=== PATIENT | male | born 1970 | race Caucasian/White ===

== ENCOUNTER 2016-08-31 19:33 | Emergency (ER) | payer OTHER ==
[2016-08-31] MEDS ORDERED: KETOROLAC 60 MG/2 ML VIAL IM STA (20:57)
[2016-08-31] MEDS ORDERED: KETOROLAC 60 MG/2 ML VIAL ONE (21:03)
[2016-08-31 21:57] LABS: BILIRUBIN,URINE NEGATIVE (NEGATIVE)
[2016-08-31 21:58] LABS: UA w/ MICROSCOPIC CHARGE YES
[2016-08-31 22:03] LABS: UR CULTURE IF IND NOT INDICATED; WBC,URINE 0-3 /HPF (0-3)
[2016-08-31] MEDS ORDERED: TAMSULOSIN 0.4 MG CAPSULE PO STA (22:45)
[2016-08-31] MEDS ORDERED: oxyCOD/ACETAMIN 5 MG/325 MG TABLET PO STA (22:45)
[2016-08-31] MEDS ORDERED: oxyCODONE/ACET 5/325 Prepack 4 PO STA (22:45)
[2016-08-31] MEDS ORDERED: TAMSULOSIN 0.4 MG CAPSULE ONE (22:47)
[2016-08-31] MEDS ORDERED: oxyCODONE/ACET 5/325 Prepack 4 PO ONE (22:47)
[2016-08-31] MEDS ORDERED: oxyCOD/ACETAMIN 5 MG/325 MG TABLET PO ONE (22:47)
--- NOTE | 2016-08-31 22:47 | CT Preliminary Report ---
Exam: CT Abdomen/Pelvis W/O IMPRESSION: 1. Nonobstructing 2 mm right intrarenal calcification, with no ureteral stones or obstruction. 2. Cholecystectomy noted. 3. Advanced diverticulosis without diverticulitis. [facility] SITE ID: [id number]
--- NOTE | 2016-08-31 22:49 | CT Report ---
EXAM: CT ABDOMEN AND PELVIS EXAM DATE: 08/31/2016 10:14 PM. CLINICAL HISTORY: Rigth flank pain, vomiting. History of stones. COMPARISONS: None. TECHNIQUE: Routine helical CT imaging was performed through the abdomen and pelvis. IV contrast: None . Enteric contrast: No. Reconstructions: Coronal and sagittal. In accordance with CT protocol optimization, one or more of the following dose reduction techniques w ere utilized for this exam: automated exposure control, adjustment of mA and/or KV based on patient s ize, or use of iterative reconstructive technique. FINDINGS: Lung Bases: Unremarkable. Liver: Normal. No masses. Gallbladder/Bile Ducts: Cholecystectomy. No ductal dilatation. Spleen: Normal. Pancreas: Normal. Adrenal Glands: Normal. Kidneys: Nonobstructing 2 mm calcification in a lower right renal pyramid, otherwise unremarkable kid neys and ureters. Peritoneal Cavity/Bowel: Advanced widespread diverticulosis. No free fluid, free air or adenopathy. N o masses or acute inflammatory process. The appendix is well visualized and normal. Pelvic Organs: Prostate and bladder are unremarkable. Vasculature: No aneurysms or other significant abnormality. Bones: No significant abnormality. Other: Fat-containing left inguinal hernia noted. IMPRESSION: 1. Nonobstructing 2 mm right intrarenal calcification, with no ureteral stones or obstruction. 2. Cholecystectomy noted. 3. Advanced diverticulosis without diverticulitis. [facility] Referring Provider Line: [phone] SITE ID: [id number]
--- NOTE | 2016-08-31 22:59 | ED Physician Documentation ---
PD HPI MALE - Stated complaint Stated Complaint: R SIDE PX - Chief complaint Chief Complaint: Back Pain - History obtained from History obtained from: Patient, Family - History of Present Illness Timing - onset: Today Timing - details: Abrupt onset Associated symptoms: Hematuria, Abdominal pain, Back pain Similar symptoms before: Work up / diagnostics Recently seen: Not recently seen - Additional information Additional information: Patient is a 46 year old male presenting to the emergency department for right sided flank pain that radiates to his right lower abdomen. patient states that it came on suddenly. Patient states that he thinks he has had kidney stones in the past but he has never been officially diagnosed with stones. Review of Systems Constitutional: denies: Fever, Chills Ears: denies: Ear pain, Drainage/discharge Nose: denies: Rhinorrhea / runny nose, Congestion, Sinus pressure / pain, Reviewed and negative Throat: denies: Dental pain / toothache, Oral lesions / sores Cardiac: denies: Chest pain / pressure, Palpitations Respiratory: denies: Cough GI: reports: Abdominal Pain, Nausea, Vomiting. denies: Constipation, Diarrhea : denies: Dysuria, Frequency, Hesitancy, Discharge Skin: denies: Rash, Lesions Musculoskeletal: reports: Back pain. denies: Neck pain, Extremity pain, Joint pain Neurologic: denies: Generalized weakness, Focal weakness, Numbness Immunocompromised: denies: Immunocompromised PD PAST MEDICAL HISTORY - Past Medical History Past Medical History: Yes GI: Hiatal hernia Psych: Depression Other Past Medical History: IBS. suspects prostate problem - Past Surgical History Past Surgical History: Yes General: Cholecystectomy, Colonoscopy, EGD - Present Medications Home Medications: Ambulatory Orders Medication Instructions Recorded Confirmed Omeprazole [PriLOSEC] 20 mg PO DAILY 08/31/16 08/31/16 Ondansetron Odt [Zofran] 4 mg TL Q6H PRN #14 tablet 08/31/16 Oxycodone HCl/Acetaminophen 1 - 2 each PO Q6H PRN #7 tablet 08/31/16 [Percocet 5-325 mg Tablet] Tamsulosin [Flomax] 0.4 mg PO DAILY #30 capsule 08/31/16 - Allergies Allergies/Adverse Reactions: Allergies Allergy/AdvReac Type Severity Reaction Status Date / Time No Known Drug Allergies Allergy Verified 04/24/15 19:50 - Social History Does the pt smoke?: No Smoking Status: Never smoker Does the pt drink ETOH?: Yes Does the pt have substance abuse?: No - Immunizations Immunizations are current?: Yes PD ED PE NORMAL - General General: Alert and oriented X 3, Well developed/nourished - HEENT HEENT: Atraumatic, PERRL, Pharynx benign - Neck Neck: Supple, no meningeal sign, No JVD - Cardiac Cardiac: RRR, No murmur, No rub - Respiratory Respiratory: No respiratory distress, Clear bilaterally - Abdomen Abdomen: Soft, Non tender, Non distended - Derm Derm: Normal color, Warm and dry, No rash - Extremities Extremities: No deformity, No tenderness to palpate, No edema - Neuro Neuro: Alert and oriented X 3, 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, No motor deficit, No sensory deficit, Normal speech - Psych Psych: Normal mood, Normal affect PD ED PE EXPANDED - General General: Alert, In Pain Results - Vitals Vitals: Vital Signs - 24 hr 08/31/16 08/31/16 08/31/16 19:38 22:03 23:07 Temperature 36.7 C 36.6 C 36.6 C Heart Rate 59 L 77 82 Respiratory 20 15 16 Rate Blood Pressure 134/89 H 125/73 121/76 O2 Saturation 96 96 96 Oxygen O2 Source Room air - Labs Labs: Laboratory Tests 08/31/16 21:45 Urine Color YELLOW Urine Clarity CLEAR Urine pH 6.0 Ur Specific [place] 1.025 Urine Protein NEGATIVE Urine Glucose (UA) NEGATIVE Urine Ketones NEGATIVE Urine Occult Blood LARGE H Urine Nitrite NEGATIVE Urine Bilirubin NEGATIVE Urine Urobilinogen 0.2 (NORMAL) Ur Leukocyte Esterase NEGATIVE Urine RBC TNTC H Urine WBC 0-3 Ur Squamous Epith Cells RARE Squamous Urine Crystals 0-2 Calcium Oxalate Urine Bacteria Rare Urine Mucus Few Strands Ur Microscopic Review INDICATED Urine Culture Comments NOT INDICATED - Rads (name of study) ct abdomen and pelvis Radiology: Final report received (2mm right sided kidney stone), See rad report PD MEDICAL DECISION MAKING - ED course Complexity details: reviewed old records, reviewed results, re-evaluated patient , considered differential, d/w patient, d/w family ED course: Patient was seen and examined at bedside. Urine was collected and patient was treated with toradol for pain. Patient's urine was positive for gross blood. patient was sent for imaging. When patient returned he was still in minor pain. patient was treated with a percocet and flomax. Patient's imaging revealed 2mm stone in the kidney paranchyma but no other stones. patient did not have a urinary tract infection or obstruction. No further work-up was necessary at this time. patient was stable for discharge with outpatient follow up. Departure - Departure Disposition: 01 Home, Self Care Clinical Impression: Renal calculus Condition: Good Instructions: Stones Kidney Prevent Follow-Up: primary,care provider [Other] Prescriptions: Tamsulosin [Flomax] 0.4 mg PO DAILY #30 capsule Oxycodone HCl/Acetaminophen [Percocet 5-325 mg Tablet] 1 - 2 each PO Q6H PRN #7 tablet PRN Reason: pain Ondansetron Odt [Zofran] 4 mg TL Q6H PRN #14 tablet PRN Reason: Nausea / Vomiting Comments: Your symptoms today were being caused by a kidney stone. There is one small still in your right kidney, and your already passed the other stone. You should read the information listed on helping to prevent future stones. You should drink plenty of fluids (water). If your symptoms become for frequent you should schedule an appointment with your pmd and possibly urology follow up. You may return to the emergency department at any time for new, worsening or uncontrollable symptoms. Discharge Date/Time: 08/31/16 23:07
[2016-08-31 23:08] VITALS: BP 121/76
== END 2016-08-31 23:07 | disposition home or self-care (01) ==
LOC: ED 19:33
DX: N20.0 Calculus of kidney (principal)
CPT/HCPCS: 74176; 81001; 96372; 99283; 99284; A9270; 81003; 87086

== ENCOUNTER 2019-07-13 20:54 | Emergency (ER) | payer OTHER ==
[2019-07-13 21:34] LABS: GLUCOSE, URINE (UA) NEGATIVE (NEGATIVE); KETONES,URINE (UA) >=80 mg/dL (NEGATIVE); LEUKOCYTE ESTERASE, URINE NEGATIVE (NEGATIVE); NITRITE,URINE NEGATIVE (NEGATIVE); OCCULT BLOOD,URINE NEGATIVE (NEGATIVE); PH,URINE 6.5 PH (5.0-7.5); PROTEIN,URINE NEGATIVE (NEGATIVE); UROBILINOGEN,URINE 1 (NORMAL) E.U./dL (NORMAL)
--- NOTE | 2019-07-13 21:39 | ED Physician Documentation ---
PD HPI BACK PAIN - Stated complaint Stated Complaint: LOWER BACK PX - Chief complaint Chief Complaint: Abd Pain - History obtained from History obtained from: Patient - History of Present Illness Timing - onset: Last night Timing - details: Abrupt onset, Constant Pain level now: 10 Location: Right Quality: Pain, Similar to prior episodes Associated symptoms: No: Fever, Weakness, Numbness Improves with: Other (nothing) Worsened by: Other (no exacerbating factors) Similar symptoms before: Diagnosis (similar to previous renal colic) Recently seen: Not recently seen - Additional information Additional information: c/o right flank pain that woke him from sleep last night, resolved after episode of hematuria, but recurred earlier today and is now constant. Waxing and waning and at its worst it becomes associated with vomiting. No apparent exacerbating or ameliorating factors. He says if feels very similar to episode for which he w as T+R from this ED August 2016 when w/u showed intrarenal stone but hematuria and thus it was suspected he had passed as stone during the testing. Review of Systems Constitutional: denies: Fever Cardiac: reports: Reviewed and negative Respiratory: reports: Reviewed and negative GI: reports: Nausea, Vomiting. denies: Abdominal Pain (right flank pain, not abdominal pain per se) : reports: Hematuria. denies: Dysuria, Frequency PD PAST MEDICAL HISTORY - Past Medical History Past Medical History: Yes GI: Hiatal hernia Psych: Depression - Past Surgical History Past Surgical History: Yes General: Cholecystectomy, Colonoscopy, EGD - Present Medications Home Medications: Ambulatory Orders Medication Instructions Recorded Confirmed Omeprazole [PriLOSEC] 20 mg PO DAILY 08/31/16 08/31/16 Ondansetron Odt [Zofran] 4 mg TL Q6H PRN #14 tablet 08/31/16 Oxycodone HCl/Acetaminophen 1 - 2 each PO Q6H PRN #7 tablet 08/31/16 [Percocet 5-325 mg Tablet] Tamsulosin [Flomax] 0.4 mg PO DAILY #30 capsule 08/31/16 Ondansetron Odt [Zofran] 4 mg TL Q6H PRN #10 tablet 07/13/19 Oxycodone HCl/Acetaminophen 1 - 2 each PO Q6H PRN #14 tablet 07/13/19 [Percocet 5-325 mg Tablet] - Allergies Allergies/Adverse Reactions: Allergies Allergy/AdvReac Type Severity Reaction Status Date / Time No Known Drug Allergies Allergy Verified 07/13/19 20:57 - Social History Does the pt smoke?: No Smoking Status: Never smoker Does the pt drink ETOH?: Yes Does the pt have substance abuse?: No - Immunizations Immunizations are current?: Yes PD ED PE NORMAL - Vitals Vital signs reviewed: Yes - General General: Alert and oriented X 3, No acute distress, Well developed/nourished - HEENT HEENT: Moist mucous membranes - Cardiac Cardiac: RRR, No murmur - Respiratory Respiratory: No respiratory distress, Clear bilaterally - Abdomen Abdomen: Soft, Non tender, Non distended - Back Back: No CVA TTP, No spinal TTP - Derm Derm: Normal color, Warm and dry, No rash Results - Vitals Vitals: Vital Signs - 24 hr 07/13/19 07/13/19 20:58 23:33 Temperature 36.6 C 36.9 C Heart Rate 92 65 Respiratory 14 16 Rate Blood Pressure 147/91 H 120/77 O2 Saturation 96 95 Oxygen O2 Source Room air - Labs Labs: Laboratory Tests 07/13/19 07/13/19 07/13/19 21:12 22:10 22:10 WBC 15.7 H RBC 5.55 Hgb 16.5 Hct 48.9 MCV 88.1 MCH 29.7 MCHC 33.7 RDW 13.1 Plt Count 279 MPV 8.9 Neut # (Auto) 14.0 H Lymph # (Auto) 0.6 L [place] # (Auto) 0.9 Eos # (Auto) 0.0 Baso # (Auto) 0.1 Absolute Nucleated RBC 0.00 Nucleated RBC % 0.0 Sodium 138 Potassium 4.1 Chloride 101 Carbon Dioxide 26 Anion Gap 11.0 BUN 12 Creatinine 1.5 H Estimated GFR (MDRD) 50 L Glucose 133 H Calcium 9.7 Total Bilirubin 1.2 H AST 29 ALT 47 Alkaline Phosphatase 48 Total Protein 8.1 Albumin 4.9 Globulin 3.2 Albumin/Globulin Ratio 1.5 Lipase 29 Urine Color YELLOW Urine Clarity CLEAR Urine pH 6.5 Ur Specific [place] 1.020 Urine Protein NEGATIVE Urine Glucose (UA) NEGATIVE Urine Ketones >=80 H Urine Occult Blood NEGATIVE Urine Nitrite NEGATIVE Urine Bilirubin SMALL H Urine Urobilinogen 1 (NORMAL) Ur Leukocyte Esterase NEGATIVE Ur Microscopic Review NOT INDICATED Urine Culture Comments NOT INDICATED PD MEDICAL DECISION MAKING - ED course Complexity details: reviewed old records, reviewed results, re-evaluated patient, considered differential, d/w patient ED course: Patient feels his symptoms are very similar to previous renal colic and reported adequate symptom relief with toradol IV. He is nontender on abdominal exam. No hematuria on UA, although he says he had obvious/gross hematuria yesterday. I encouraged him to return to the ED if worse in any way, and to f/u with PMD next available appointment Departure - Departure Disposition: 01 Home, Self Care Clinical Impression: Flank pain Condition: Good Instructions: ED Flank Pain Uncertain Cause Prescriptions: Ondansetron Odt [Zofran] 4 mg TL Q6H PRN #10 tablet PRN Reason: Nausea / Vomiting Oxycodone HCl/Acetaminophen [Percocet 5-325 mg Tablet] 1 - 2 each PO Q6H PRN #14 tablet PRN Reason: pain Comments: Follow up with your primary care provider: call in the morning to arrange for next available appointment Discharge Date/Time: 07/13/19 23:44
[2019-07-13 21:42] LABS: BILIRUBIN,URINE SMALL (NEGATIVE); CLARITY,URINE CLEAR (CLEAR); ICTOTEST,URINE POSITIVE
[2019-07-13] MEDS ORDERED: ONDANSETRON 4 MG/2 ML VIAL IVP STA (21:54)
[2019-07-13] MEDS ORDERED: SODIUM CHLORIDE 0.9% 1,000 ML IV STA (21:54)
[2019-07-13] MEDS ORDERED: KETOROLAC 30 MG/ML VIAL IVP STA (21:54)
[2019-07-13 22:14] LABS: BASOPHILS # (AUTO) 0.1 10^3/uL (0.0-0.1); BASOPHILS % (AUTO) 0.4 %; EOSINOPHILS % (AUTO) 0.1 %; HGB - HEMOGLOBIN 16.5 g/dL (14.0-18.0); LYMPHOCYTES # (AUTO) 0.6 10^3/uL (1.5-3.5); MEAN CORPUSCULAR HEMOGLOBIN 29.7 pg (27.0-31.0); MEAN CORPUSCULAR HGB CONC 33.7 g/dL (32.0-36.0); MEAN CORPUSCULAR VOLUME 88.1 fL (80.0-94.0); MEAN PLATELET VOLUME 8.9 fL (7.4-11.4); MONOCYTES # (AUTO) 0.9 10^3/uL (0.0-1.0); MONOCYTES % (AUTO) 5.7 %; NEUTROPHILS % (AUTO) 89.2 %; PLT - PLATELET COUNT 279 10^3/uL (130-450); RED BLOOD COUNT 5.55 10^6/uL (4.70-6.10); RED CELL DISTRIBUTION WIDTH 13.1 % (12.0-15.0); WHITE BLOOD COUNT 15.7 x10^3/uL (4.8-10.8)
[2019-07-13 22:33] LABS: ALBUMIN 4.9 g/dL (3.2-5.5); ALBUMIN/GLOBULIN RATIO 1.5 (1.0-2.2); BILIRUBIN,TOTAL 1.2 mg/dL (0.2-1.0); CALCIUM 9.7 mg/dL (8.5-10.3); CREATININE 1.5 mg/dL (0.6-1.2); TOTAL PROTEIN 8.1 g/dL (6.7-8.2)
[2019-07-13] MEDS ORDERED: oxyCODONE/ACET 5/325 Prepack 4 PO STA (23:25)
[2019-07-13] MEDS ORDERED: ONDANSETRON ODT 4 MG Prepack 2 TL PRN (23:25)
[2019-07-13 23:33] VITALS: BP 120/77
== END 2019-07-13 23:44 | disposition home or self-care (01) ==
LOC: ED 20:54
DX: R10.9 Unspecified abdominal pain (principal); R11.2 Nausea with vomiting, unspecified
CPT/HCPCS: 36415; 80053; 81001; 81003; 83690; 85025; 87086; 96361; 96374; 99284